=== PATIENT | female | born 1995 | race Caucasian/White ===

== ENCOUNTER 2023-02-03 11:20 | Emergency (ER) | payer OTHER ==
[2023-02-03 11:38] VITALS: BP 107/62; PULSE 76; RESP 17; TEMP 98.5; BMI 30.2
[2023-02-03] MEDS ORDERED: ONDANSETRON 4 MG/2 ML VIAL IVPUSH ONE (11:50)
[2023-02-03] MEDS ORDERED: ACETAMINOPHEN 1000 MG/100 ML BAG IVPB ONE (11:50)
[2023-02-03] MEDS ORDERED: SODIUM CHLORIDE 0.9% 500 ML INFUS.BAG IV ONE (11:50)
[2023-02-03] MEDS ORDERED: ACETAMINOPHEN INJECTION 100 ML IVPB ONE (12:00)
[2023-02-03] MEDS ORDERED: ONDANSETRON 4 MG/2 ML VIAL ONE (12:00)
[2023-02-03 12:33] LABS: BASO % 0.5 % (0-2.0); EOS % 0.6 % (0-4.5); HEMATOCRIT 42.3 % (32.4-45.2); HEMOGLOBIN 13.8 GM/dL (10.7-15.3); MCH 29.9 pg (25.7-33.7); MCHC 32.6 g/dl (32.0-36.0); MEAN CELL VOLUME 91.6 fl (80-96); MEAN PLT VOLUME 9.3 fl (7.5-11.1); MONO % 5.8 % (3.8-10.2); NEUT % 68.1 % (42.8-82.8); PLATELET COUNT 255 10^3/uL (134-434); RBC 4.61 M/mm3 (3.60-5.2); RDW 13.9 % (11.6-15.6); WHITE BLOOD COUNT 12.2 K/mm3 (4.0-10.0)
[2023-02-03 12:48] LABS: POTASSIUM 4.4 mmol/L (3.5-5.1)
[2023-02-03 12:51] LABS: BLOOD UREA NITROGEN 9.8 mg/dL (7-18)
[2023-02-03 12:54] LABS: CREATININE 0.6 mg/dL (0.55-1.3)
[2023-02-03 13:55] LABS: PH,URINE 5.5 (5.0-8.0); URINE APPEARANCE CLEAR; URINE BILIRUBIN NEGATIVE (NEGATIVE); URINE COLOR YELLOW; URINE GLUCOSE (UA) NEGATIVE (NEGATIVE); URINE KETONE NEGATIVE (NEGATIVE); URINE LEUK ESTERASE NEGATIVE (NEGATIVE); URINE NITRITE NEGATIVE (NEGATIVE); URINE PROTEIN NEGATIVE (NEGATIVE); URINE UROBILINOGEN 0.2 mg/dL (0.2-1.0)
[2023-02-03 13:58] LABS: HCG,QUALITATIVE URINE Negative
[2023-02-03] MEDS ORDERED: KETOROLAC TROMETHAMINE 30 MG/1 ML VIAL IVPUSH ONE (14:13)
[2023-02-03] MEDS ORDERED: KETOROLAC TROMETHAMINE 60 MG/2 ML VIAL ONE (14:33)
== END 2023-02-03 16:31 | disposition home or self-care (01) ==
LOC: JER 11:20
PROC: 3E033NZ Introduction of Analgesics, Hypnotics, Sedatives into Peripheral Vein, Percutaneous Approach (ICD-10-PCS; principal; 2023-02-03)
PROC: 3E0333Z Introduction of Anti-inflammatory into Peripheral Vein, Percutaneous Approach (ICD-10-PCS; 2023-02-03)
PROC: 3E033GC Introduction of Other Therapeutic Substance into Peripheral Vein, Percutaneous Approach (ICD-10-PCS; 2023-02-03)
DX: M54.6 Pain in thoracic spine (principal); R11.2 Nausea with vomiting, unspecified; N13.30 Unspecified hydronephrosis
CPT/HCPCS: 36415; 74176-TC; 80048; 81003; 84703; 85025; 87086; 99284-25

== ENCOUNTER 2023-03-02 13:38 | Emergency (ER) | payer OTHER ==
[2023-03-02 13:46] VITALS: BP 116/70; RESP 18; BMI 29.2
[2023-03-02] MEDS ORDERED: ACETAMINOPHEN 1000 MG/100 ML BAG IVPB ONE (14:09)
[2023-03-02] MEDS ORDERED: SODIUM CHLORIDE 1,000 ML IV STA (14:09)
[2023-03-02] MEDS ORDERED: MECLIZINE HCL 25 MG TABLET (FP) PO ONE (14:09)
[2023-03-02] MEDS ORDERED: ONDANSETRON 4 MG/2 ML VIAL IVPUSH ONE (14:11)
[2023-03-02] MEDS ORDERED: MECLIZINE HCL 25 MG TABLET (FP) ONE (14:23)
[2023-03-02] MEDS ORDERED: ONDANSETRON 4 MG/2 ML VIAL ONE (14:23)
[2023-03-02] MEDS ORDERED: ACETAMINOPHEN INJECTION 100 ML IVPB ONE (14:23)
[2023-03-02 14:59] LABS: BASO % 0.3 % (0-2.0); EOS % 0.4 % (0-4.5); HEMATOCRIT 39.7 % (32.4-45.2); HEMOGLOBIN 12.7 GM/dL (10.7-15.3); LYMPH % 16.6 % (8-40); MCHC 31.9 g/dl (32.0-36.0); MEAN CELL VOLUME 90.9 fl (80-96); MEAN PLT VOLUME 9.3 fl (7.5-11.1); MONO % 9.1 % (3.8-10.2); NEUT % 73.6 % (42.8-82.8); PLATELET COUNT 245 10^3/uL (134-434); RBC 4.36 M/mm3 (3.60-5.2); RDW 13.8 % (11.6-15.6)
[2023-03-02 15:01] LABS: URINE APPEARANCE CLEAR; URINE BILIRUBIN NEGATIVE (NEGATIVE); URINE COLOR YELLOW; URINE GLUCOSE (UA) NEGATIVE (NEGATIVE); URINE KETONE NEGATIVE (NEGATIVE); URINE LEUK ESTERASE NEGATIVE (NEGATIVE); URINE NITRITE NEGATIVE (NEGATIVE); URINE PROTEIN NEGATIVE (NEGATIVE); URINE UROBILINOGEN 0.2 mg/dL (0.2-1.0)
[2023-03-02 15:04] LABS: HCG,QUALITATIVE URINE Negative
[2023-03-02 15:28] LABS: POTASSIUM 4.2 mmol/L (3.5-5.1)
[2023-03-02 15:30] LABS: BLOOD UREA NITROGEN 9.2 mg/dL (7-18); CALCIUM 9.5 mg/dL (8.5-10.1); MAGNESIUM 2.3 mg/dL (1.8-2.4)
[2023-03-02 15:33] LABS: CREATININE 0.7 mg/dL (0.55-1.3)
[2023-03-02 15:35] LABS: BILIRUBIN,TOTAL 0.4 mg/dL (0.2-1); TOT PROT 7.6 g/dl (6.4-8.2)
[2023-03-02 16:09] VITALS: PULSE 76; TEMP 98.6
== END 2023-03-02 16:08 | disposition home or self-care (01) ==
LOC: JER 13:38 → JERFT 13:38
PROC: 3E033NZ Introduction of Analgesics, Hypnotics, Sedatives into Peripheral Vein, Percutaneous Approach (ICD-10-PCS; principal; 2023-03-02)
PROC: 3E033GC Introduction of Other Therapeutic Substance into Peripheral Vein, Percutaneous Approach (ICD-10-PCS; 2023-03-02)
PROC: 3E0337Z Introduction of Electrolytic and Water Balance Substance into Peripheral Vein, Percutaneous Approach (ICD-10-PCS; 2023-03-02)
DX: M54.2 Cervicalgia (principal); R51.9 Headache, unspecified; R42 Dizziness and giddiness; R11.2 Nausea with vomiting, unspecified; J03.90 Acute tonsillitis, unspecified; Z20.822 Contact with and (suspected) exposure to COVID-19
CPT/HCPCS: 0241U-QW; 36415; 80053; 81003; 83690; 83735; 84703; 85025; 87086; 99284-25

== ENCOUNTER 2023-05-01 00:48 | Emergency (ER) | payer OTHER ==
[2023-05-01 00:54] VITALS: BP 105/70; PULSE 76; RESP 18; TEMP 97.6; BMI 32.9
[2023-05-01] MEDS ORDERED: ACETAMINOPHEN 1000 MG/100 ML BAG IVPB ONE (02:02)
[2023-05-01] MEDS ORDERED: SODIUM CHLORIDE 0.9% 500 ML INFUS.BAG IV ONE (02:02)
[2023-05-01] MEDS ORDERED: ACETAMINOPHEN INJECTION 100 ML IVPB ONE (02:05)
[2023-05-01 02:09] LABS: BASO % 0.2 % (0-2.0); EOS % 1.1 % (0-4.5); HEMATOCRIT 38.3 % (32.4-45.2); HEMOGLOBIN 12.8 GM/dL (10.7-15.3); MCH 30.3 pg (25.7-33.7); MCHC 33.3 g/dl (32.0-36.0); MEAN CELL VOLUME 90.9 fl (80-96); MEAN PLT VOLUME 8.6 fl (7.5-11.1); MONO % 8.8 % (3.8-10.2); NEUT % 57.9 % (42.8-82.8); PLATELET COUNT 257 10^3/uL (134-434); RBC 4.22 M/mm3 (3.60-5.2); RDW 14.5 % (11.6-15.6); WHITE BLOOD COUNT 8.3 K/mm3 (4.0-10.0)
[2023-05-01 02:17] LABS: INR 0.99 (0.83-1.09); PROTHROMBIN TIME (PATIENT) 11.5 SEC (9.7-13.0)
[2023-05-01 02:20] LABS: ACTIVATED PTT 31.9 SECONDS (25.2-36.5)
[2023-05-01 02:44] LABS: POTASSIUM 4.2 mmol/L (3.5-5.1)
[2023-05-01 02:46] LABS: BLOOD UREA NITROGEN 15.2 mg/dL (7-18)
[2023-05-01 02:47] LABS: ALBUMIN 3.6 g/dl (3.4-5.0)
[2023-05-01 02:50] LABS: CREATININE 0.6 mg/dL (0.55-1.3)
[2023-05-01 02:51] LABS: BILIRUBIN,TOTAL 0.4 mg/dL (0.2-1); TOT PROT 6.8 g/dl (6.4-8.2)
== END 2023-05-01 05:11 | disposition home or self-care (01) ==
LOC: JER 00:48
PROC: 3E033NZ Introduction of Analgesics, Hypnotics, Sedatives into Peripheral Vein, Percutaneous Approach (ICD-10-PCS; principal; 2023-05-01)
DX: M79.602 Pain in left arm (principal); M54.9 Dorsalgia, unspecified; R10.32 Left lower quadrant pain; W10.9XXA Fall (on) (from) unspecified stairs and steps, initial encounter
CPT/HCPCS: 36415; 70450-TC; 71045-TC-FY; 72125-TC; 72128-TC; 72131-TC; 72170-TC-FY; 73070-TC-LT-FY; 74177-TC; 80053; 84703; 85025; 85610; 85730; 86850; 86900; 86901; 99285-25; Q9967

== ENCOUNTER 2023-07-14 09:39 | Emergency (ER) | payer OTHER ==
[2023-07-14 09:45] VITALS: TEMP 97.8; BMI 31.4
[2023-07-14] MEDS ORDERED: SODIUM CHLORIDE 0.9% 500 ML INFUS.BAG IV ONE (09:46)
[2023-07-14] MEDS ORDERED: ONDANSETRON 4 MG/2 ML VIAL IVPUSH ONE (09:46)
[2023-07-14] MEDS ORDERED: ONDANSETRON 4 MG/2 ML VIAL ONE (10:00)
[2023-07-14 10:24] LABS: PH,URINE 5.5 (5.0-8.0); URINE APPEARANCE CLEAR; URINE BILIRUBIN NEGATIVE (NEGATIVE); URINE COLOR YELLOW; URINE GLUCOSE (UA) NEGATIVE (NEGATIVE); URINE KETONE TRACE (NEGATIVE); URINE LEUK ESTERASE NEGATIVE (NEGATIVE); URINE NITRITE NEGATIVE (NEGATIVE); URINE PROTEIN NEGATIVE (NEGATIVE); URINE UROBILINOGEN 0.2 mg/dL (0.2-1.0)
[2023-07-14 10:25] LABS: BASO % 0.1 % (0-2.0); HEMATOCRIT 43.1 % (32.4-45.2); HEMOGLOBIN 14.4 GM/dL (10.7-15.3); LYMPH % 10.5 % (8-40); MCH 30.2 pg (25.7-33.7); MCHC 33.5 g/dl (32.0-36.0); MEAN CELL VOLUME 90.2 fl (80-96); MEAN PLT VOLUME 8.3 fl (7.5-11.1); MONO % 4.6 % (3.8-10.2); NEUT % 84.8 % (42.8-82.8); PLATELET COUNT 262 10^3/uL (134-434); RBC 4.78 M/mm3 (3.60-5.2); WHITE BLOOD COUNT 10.3 K/mm3 (4.0-10.0)
[2023-07-14 10:29] LABS: HCG,QUALITATIVE URINE Negative
[2023-07-14] MEDS ORDERED: ACETAMINOPHEN 1000 MG/100 ML BAG IVPB ONE (10:31)
[2023-07-14] MEDS ORDERED: KETOROLAC TROMETHAMINE 30 MG/1 ML VIAL IVPUSH ONE (10:31)
[2023-07-14 10:41] LABS: POTASSIUM 3.8 mmol/L (3.5-5.1)
[2023-07-14 10:43] LABS: CALCIUM 9.2 mg/dL (8.5-10.1)
[2023-07-14 10:44] LABS: ALBUMIN 3.8 g/dl (3.4-5.0); BLOOD UREA NITROGEN 11.5 mg/dL (7-18)
[2023-07-14] MEDS ORDERED: KETOROLAC TROMETHAMINE 30 MG/1 ML VIAL ONE (10:45)
[2023-07-14] MEDS ORDERED: ACETAMINOPHEN INJECTION 100 ML IVPB ONE (10:45)
[2023-07-14 10:47] LABS: CREATININE 0.7 mg/dL (0.55-1.3)
[2023-07-14 10:48] LABS: BILIRUBIN,TOTAL 0.9 mg/dL (0.2-1); TOT PROT 7.6 g/dl (6.4-8.2)
[2023-07-14] MEDS ORDERED: MAG HYDROX/AL HYDROX/SIMETH 30 ML UNIT-DOSE CUP PO ONE (12:38)
[2023-07-14] MEDS ORDERED: FAMOTIDINE 20 MG TABLET PO ONE (12:38)
[2023-07-14] MEDS ORDERED: MAG HYDROX/AL HYDROX/SIMETH 30 ML UNIT-DOSE CUP ONE (12:39)
[2023-07-14] MEDS ORDERED: FAMOTIDINE 20 MG TABLET ONE (12:41)
[2023-07-14 13:16] VITALS: BP 106/76; PULSE 80; RESP 19
== END 2023-07-14 14:13 | disposition home or self-care (01) ==
LOC: JER 09:39
PROC: 3E033NZ Introduction of Analgesics, Hypnotics, Sedatives into Peripheral Vein, Percutaneous Approach (ICD-10-PCS; principal; 2023-07-14)
PROC: 3E0333Z Introduction of Anti-inflammatory into Peripheral Vein, Percutaneous Approach (ICD-10-PCS; 2023-07-14)
PROC: 3E033GC Introduction of Other Therapeutic Substance into Peripheral Vein, Percutaneous Approach (ICD-10-PCS; 2023-07-14)
DX: R11.2 Nausea with vomiting, unspecified (principal); R10.33 Periumbilical pain; M54.9 Dorsalgia, unspecified; R19.7 Diarrhea, unspecified; R50.9 Fever, unspecified; A08.4 Viral intestinal infection, unspecified; Z20.822 Contact with and (suspected) exposure to COVID-19
CPT/HCPCS: 0241U-QW; 36415; 74176-TC; 80053; 81003; 83690; 84703; 85025; 87086; 99284-25

== ENCOUNTER 2023-12-22 13:54 | Emergency (ER) | payer OTHER ==
[2023-12-22 14:16] VITALS: BP 106/64; PULSE 84; RESP 17; TEMP 97.1; BMI 29.2
[2023-12-22] MEDS ORDERED: MORPHINE SULFATE 2 MG/ML SYRINGE ONE (15:20)
[2023-12-22 15:22] LABS: BASO % 0.2 % (0-2.0); EOS % 0.2 % (0-4.5); HEMATOCRIT 40.6 % (32.4-45.2); HEMOGLOBIN 13.9 GM/dL (10.7-15.3); LYMPH % 8.4 % (8-40); MCH 30.4 pg (25.7-33.7); MCHC 34.1 g/dl (32.0-36.0); MEAN PLT VOLUME 8.9 fl (7.5-11.1); MONO % 4.5 % (3.8-10.2); NEUT % 86.7 % (42.8-82.8); PLATELET COUNT 292 10^3/uL (134-434); RBC 4.56 M/mm3 (3.60-5.2); WHITE BLOOD COUNT 11.8 K/mm3 (4.0-10.0)
[2023-12-22 15:24] LABS: URINE APPEARANCE CLEAR; URINE BILIRUBIN NEGATIVE (NEGATIVE); URINE COLOR YELLOW; URINE GLUCOSE (UA) NEGATIVE (NEGATIVE); URINE KETONE 1+ (NEGATIVE); URINE LEUK ESTERASE NEGATIVE (NEGATIVE); URINE NITRITE NEGATIVE (NEGATIVE); URINE PROTEIN NEGATIVE (NEGATIVE)
[2023-12-22] MEDS: SODIUM CHLORIDE 0.9% 500 ML INFUS.BAG IV ONE (15:28)
[2023-12-22] MEDS: morphine CARPU-JECT 2 MG/1 ML DISP.SYRIN IVPUSH ONE (15:31)
[2023-12-22] MEDS: ACETAMINOPHEN 1000 MG/100 ML BAG IVPB ONE (15:31)
[2023-12-22 15:43] LABS: CHLORIDE 106 mmol/L (98-107); SODIUM 133 mmol/L (136-145)
[2023-12-22 15:46] LABS: CALCIUM 9.3 mg/dL (8.5-10.1)
[2023-12-22 15:47] LABS: ALBUMIN 3.8 g/dl (3.4-5.0); BLOOD UREA NITROGEN 10.7 mg/dL (7-18); CO2 27 mmol/L (21-32); GLUCOSE,RANDOM 84 mg/dL (74-106)
[2023-12-22 15:49] LABS: SGPT/ALT 32 U/L (13-61)
[2023-12-22 15:50] LABS: CREATININE 0.8 mg/dL (0.55-1.3); SGOT/AST 54 U/L (15-37)
[2023-12-22 15:51] LABS: BILIRUBIN,TOTAL 1.1 mg/dL (0.2-1); TOT PROT 7.8 g/dl (6.4-8.2)
[2023-12-22 15:53] LABS: ALK PHOS 75 U/L (45-117)
[2023-12-22 16:03] LABS: ANION GAP 0 mmol/L (4-13); POTASSIUM 6.5 mmol/L (3.5-5.1)
[2023-12-22] MEDS ORDERED: MAG HYDROX/AL HYDROX/SIMETH 30 ML UNIT-DOSE CUP ONE (19:28)
== END 2023-12-22 20:24 | disposition home or self-care (01) ==
LOC: JER 13:54
PROC: 3E033NZ Introduction of Analgesics, Hypnotics, Sedatives into Peripheral Vein, Percutaneous Approach (ICD-10-PCS; principal; 2023-12-22)
DX: R10.11 Right upper quadrant pain (principal); N83.201 Unspecified ovarian cyst, right side
CPT/HCPCS: 36415; 74177-TC; 76700-TC; 80053; 81003; 83690; 84132; 84703; 85025; 87086; 99285-25; Q9967

== ENCOUNTER 2024-12-05 09:59 | Emergency (ER) | payer OTHER ==
[2024-12-05 10:08] VITALS: BP 127/65; PULSE 80; RESP 18; TEMP 98.7; BMI 28.9
[2024-12-05] MEDS ORDERED: METOCLOPRAMIDE HCL INJECTION 10 MG/2 ML VIAL ONE (11:16)
[2024-12-05] MEDS ORDERED: ACETAMINOPHEN INJECTION 100 ML ONE (11:16)
[2024-12-05] MEDS: METOCLOPRAMIDE HCL INJECTION 10 MG/2 ML VIAL IVPB ONE (12:02)
[2024-12-05] MEDS: SODIUM CHLORIDE 0.9% 500 ML INFUS.BAG IV ONE (12:02)
[2024-12-05] MEDS: ACETAMINOPHEN 1000 MG/100 ML BAG IVPB ONE (12:02)
[2024-12-05 12:03] LABS: ABSOLUTE IMMATURE GRANULOCYTES 0.02 x10^3/uL (0.0-0.031); EOSINOPHIL % 0.9 % (0.7-5.8); EOSINOPHILS # 0.07 x10^3/uL (0.04-0.36)
[2024-12-05 12:05] LABS: BASOPHILS # 0.04 x10^3/uL (0.01-0.08); HEMATOCRIT 40.8 % (34.1-44.9); HEMOGLOBIN 13.1 g/dL (11.2-15.7); MCHC 32.1 g/dl (32.2-35.5); MEAN PLT VOLUME 10.1 fl (9.4-12.3); MONOCYTE # 0.55 x10^3/uL (0.24-0.86); MONOCYTE % 7.2 % (4.7-12.5); PLATELET COUNT 309 x10^3/uL (182-369); RDW 13.1 % (12.1-16.8)
[2024-12-05] MEDS: KETOROLAC TROMETHAMINE 30 MG/1 ML VIAL IVPUSH ONE (12:21)
[2024-12-05] MEDS ORDERED: KETOROLAC TROMETHAMINE 30 MG/1 ML VIAL ONE (12:23)
[2024-12-05 12:39] LABS: ALBUMIN 3.9 g/dl (3.4-5.0); POTASSIUM 4.4 mmol/L (3.5-5.1)
[2024-12-05 12:40] LABS: CALCIUM 10.1 mg/dL (8.5-10.1)
[2024-12-05 12:41] LABS: BLOOD UREA NITROGEN 9.1 mg/dL (7-18)
[2024-12-05 12:43] LABS: CREATININE 0.7 mg/dL (0.55-1.3)
[2024-12-05 12:46] LABS: BILIRUBIN,TOTAL 0.4 mg/dL (0.2-1); TOT PROT 7.3 g/dl (6.4-8.2)
== END 2024-12-05 13:52 | disposition home or self-care (01) ==
LOC: JER 09:59
PROC: 3E033NZ Introduction of Analgesics, Hypnotics, Sedatives into Peripheral Vein, Percutaneous Approach (ICD-10-PCS; principal; 2024-12-05)
PROC: 3E0333Z Introduction of Anti-inflammatory into Peripheral Vein, Percutaneous Approach (ICD-10-PCS; 2024-12-05)
PROC: 3E033GC Introduction of Other Therapeutic Substance into Peripheral Vein, Percutaneous Approach (ICD-10-PCS; 2024-12-05)
DX: R51.9 Headache, unspecified (principal); R42 Dizziness and giddiness; R11.0 Nausea
CPT/HCPCS: 36415; 70450-TC; 70486-TC; 80053; 84703; 85025; 99285-25